=== PATIENT | male | born 1985 | race Caucasian/White ===

== ENCOUNTER 2022-03-30 20:01 | Outpatient (CLI) | payer OTHER, SELFPAY ==
[2022-03-30 21:14] LABS: D Dimer 0.29 ug/mIFEU (0-0.59)
== END 2022-03-30 20:02 | disposition home or self-care (01) ==
PROVIDERS: Visit Provider Internal Medicine
DX: R06.02 Shortness of breath (principal)
CPT/HCPCS: 36415; 85378